=== PATIENT | female | born 1945 | race Caucasian/White ===

== ENCOUNTER 2017-07-22 08:48 | Day surgery (SDC) | payer MEDICARE ==
[~2017-07-22] VITALS: Ht 149.9 cm; Wt 48.1 kg
[~2017-07-22 08:48] MED LIST: ALBUHFA IH; ASCO10007 PO; ATEN50TA PO; CALC-724 PO; CYAN25002 PO; FOLI0.8C PO; GLUC100019 PO; LEVO75TA10 PO; LISI10TA7 PO; LOVA40TA2 PO; OMEG1CAP2 PO; SODIUM CHLORIDE 0.9% 1000ML 1,000 ML IV ONE; SYMB8060 IH; VITA400C70 PO
[2017-07-22 09:41] VITALS: BP 141/66
[2017-07-22] MEDS ORDERED: PROPOFOL 10 MG/ML 20ML VIAL IV ONE ×2 (10:21)
[2017-07-22 10:42] VITALS: BP 79/39
== END 2017-07-22 11:10 | disposition home or self-care (01) ==
LOC: DAH 08:48
PROVIDERS: ATTEND Internal Medicine Gastroenterology
DX: D12.2 Benign neoplasm of ascending colon (principal); K63.5 Polyp of colon; K57.30 Diverticulosis of large intestine without perforation or abscess without bleeding; I10 Essential (primary) hypertension; E78.5 Hyperlipidemia, unspecified; E03.9 Hypothyroidism, unspecified; G47.33 Obstructive sleep apnea (adult) (pediatric); J44.9 Chronic obstructive pulmonary disease, unspecified; Z80.3 Family history of malignant neoplasm of breast; Z90.49 Acquired absence of other specified parts of digestive tract; Z90.11 Acquired absence of right breast and nipple; F17.210 Nicotine dependence, cigarettes, uncomplicated; Z98.890 Other specified postprocedural states
CPT/HCPCS: 45380; 45385; 88305; J2704 ×2; J7030

== ENCOUNTER → 2017-11-20 | Outpatient (CLI) | payer MEDICARE ==
[~2017-11-20] MED LIST changes: +AMLO5TAB2 PO; +ASPI-1181 PO; +LEVO50TA11 PO; +LISI-613 PO; +POTASSIUM GLUCONATE PO; -SODIUM CHLORIDE 0.9% 1000ML 1,000 ML IV ONE
== END | disposition home or self-care (01) ==
LOC: SHCH 07:49
PROVIDERS: ATTEND Internal Medicine Cardiovascular Disease
DX: I71.4 Abdominal aortic aneurysm, without rupture (principal)
CPT/HCPCS: 93978

== ENCOUNTER → 2017-12-17 | Outpatient (CLI) | payer MEDICARE | END | disposition home or self-care (01) | LOC: EDSTATUS 13:30 → SHCH 13:50 | PROVIDERS: ATTEND Internal Medicine Cardiovascular Disease | DX: I07.1 Rheumatic tricuspid insufficiency (principal); I10 Essential (primary) hypertension | CPT/HCPCS: 93306 ==

== ENCOUNTER → 2017-12-23 | Outpatient (CLI) | payer MEDICARE ==
[~2017-12-23] MED LIST changes: +REGADENOSON 0.4 MG/5 ML PF SYG IVP SCH
== END | disposition home or self-care (01) ==
LOC: EDSTATUS 09:10 → SHCH 10:36
PROVIDERS: ATTEND Internal Medicine Cardiovascular Disease
DX: I25.10 Atherosclerotic heart disease of native coronary artery without angina pectoris (principal); I10 Essential (primary) hypertension
CPT/HCPCS: 78452; 93017; 96374; A9500 ×2; J2785

== ENCOUNTER 2018-01-02 10:00 | Inpatient (IN) | payer MEDICARE ==
[~2018-01-02] VITALS: Ht 152.4 cm; Wt 46.3 kg
[~2018-01-02 10:00] MED LIST changes: -AMLO5TAB2 PO; -ASCO10007 PO; -ASPI-1181 PO; -CALC-724 PO; -CYAN25002 PO; -FOLI0.8C PO; -GLUC100019 PO; -LEVO50TA11 PO; -LISI-613 PO; -POTASSIUM GLUCONATE PO; -REGADENOSON 0.4 MG/5 ML PF SYG IVP SCH; -VITA400C70 PO
[2018-01-02 11:18] VITALS: BP 117/64
[2018-01-02] MEDS ORDERED: ASPI-1181 PO (11:40)
[2018-01-02] MEDS ORDERED: AMLO5TAB2 PO (11:40)
[2018-01-02] MEDS ORDERED: LEVO50TA11 PO (11:40)
[2018-01-02] MEDS ORDERED: POTASSIUM GLUCONATE PO (11:40)
[2018-01-02] MEDS ORDERED: LISI-613 PO (11:40)
[2018-01-02 11:47] LABS: BASOPHILS % (AUTO) 1.2 % (0.0-5.0); HEMATOCRIT 41.5 % (36-48); MEAN CORPUSCULAR HEMOGLOBIN 33.5 pg (27.0-33.0); MEAN CORPUSCULAR HGB CONC 34.2 g/dL (32.0-36.0); MONOCYTES % (AUTO) 6.3 % (3.0-13.0); NEUTROPHILS % (AUTO) 64.5 % (40.0-77.0); NUCLEATED RED BLOOD CELLS 0.1 % (0.0-0.19); PLATELET COUNT (AUTO) 231 K/uL (130-400); RED BLOOD CELL COUNT(AUTO) 4.23 MIL/uL (4.00-5.50); RED CELL DISTRIBUTION WIDTH 13.8 % (11.0-15.5); WHITE BLOOD COUNT (AUTO) 8.5 K/uL (4.8-10.8)
[2018-01-02 11:49] LABS: APPEARANCE,URINE Clear (CLEAR); BILIRUBIN,URINE Negative (NEGATIVE); COLOR,URINE Yellow (YELLOW); GLUCOSE, URINE (UA) Negative (NEGATIVE); KETONES,URINE Negative (NEGATIVE); LEUKOCYTE ESTERASE ,URINE Negative (NEGATIVE); NITRATE,URINE Negative (NEGATIVE); OCCULT BLOOD,URINE Negative (NEGATIVE); PH,URINE 7.5 (5.0-8.0); PROTEIN,URINE Negative (NEGATIVE); UROBILINOGEN,URINE 0.2 mg/dL (0.2-1.0)
[2018-01-02 11:52] LABS: CREATININE 0.9 mg/dL (0.5-1.5); POTASSIUM 3.6 mmol/L (3.5-5.1)
[2018-01-02 12:03] LABS: INR 0.95 (0.85-1.15); PARTIAL THROMBOPLASTIN TIME 25.7 SEC (26.3-35.5)
[2018-01-02] MEDS: CEFAZOLIN SODIUM 1 GM VIAL IVP SCH (13:15)
[2018-01-03] MEDS: CEFAZOLIN SODIUM 1 GM VIAL IVP SCH (13:15)
[2018-01-04] MEDS: CEFAZOLIN SODIUM 1 GM VIAL IVP SCH (13:15)
[2018-01-05] MEDS: CEFAZOLIN SODIUM 1 GM VIAL IVP SCH (13:15)
[2018-01-06] VITALS (20 sets, daily range): BP systolic 81–118; BP diastolic 44–82
[2018-01-06] MEDS ORDERED: CEFAZOLIN SODIUM 1 GM VIAL ONE (06:47)
[2018-01-06] MEDS ORDERED: HEPARIN SODIUM 1000UNIT/ML 10ML VIAL ONE (06:47)
[2018-01-06] MEDS ORDERED: ISOVUE-300 100 ML VIAL IV ONE (06:49)
[2018-01-06] MEDS ORDERED: SODIUM CHLORIDE 0.9% 1000ML 1,000 ML IV ONE (07:07)
[2018-01-06] MEDS ORDERED: LIDOCAINE PF 2% 5ML ABBOJECT ONE (07:09)
[2018-01-06] MEDS ORDERED: PROPOFOL 10 MG/ML 20ML VIAL IV ONE (07:09)
[2018-01-06] MEDS ORDERED: MIDAZOLAM HCL 1 MG/ML 2ML VIAL ONE (07:09)
[2018-01-06] MEDS ORDERED: GLYCOPYRROLATE 0.2 MG/ML 5 ML VIAL ONE (07:09)
[2018-01-06] MEDS ORDERED: ONDANSETRON HCL 4 MG/2 ML VIAL ONE (07:09)
[2018-01-06] MEDS ORDERED: DEXAMETHASONE SOD PHOSPHATE 10MG/ML 1ML VIAL ONE (07:09)
[2018-01-06] MEDS ORDERED: NEOSTIGMINE 5MG/5ML SYR IV ONE (07:09)
[2018-01-06] MEDS ORDERED: FENTANYL CITRATE PF 50 MCG/1 ML 2ML VIAL ONE (07:09)
[2018-01-06] MEDS ORDERED: METHYLPREDNISOLONE SOD SUCC 125MG/2ML VIAL ONE (07:45)
[2018-01-06] MEDS ORDERED: DiphenhydrAMINE HCL 50 MG/ML VIAL ONE (07:45)
[2018-01-06] MEDS ORDERED: VANCOMYCIN 1GM+NS 250ML 250 ML IV ONE (09:44)
[2018-01-06] MEDS ORDERED: ACETAMINOPHEN-CODEINE 300/30MG TAB PO PRN (09:45)
[2018-01-06] MEDS ORDERED: MORPHINE SULFATE 4 MG/1ML SYG IV PRN (09:45)
[2018-01-06] MEDS ORDERED: ACETAMINOPHEN 325 MG TAB PO PRN (09:45)
[2018-01-06] MEDS ORDERED: ALBUTEROL SULFATE 0.083% 2.5 MG/3 ML INH IH PRN (10:30)
[2018-01-06] MEDS: ALBUTEROL SULFATE 0.083% 2.5 MG/3 ML INH IH SCH ×3 (12:00→23:19)
[2018-01-06] MEDS: SODIUM CHLORIDE 0.9% 1000ML 1,000 ML IV SCH ×2 (12:47→23:58)
[2018-01-06] MEDS: CEFAZOLIN SODIUM 1 GM VIAL IVP SCH ×3 (13:15→23:44)
[2018-01-06] MEDS ORDERED: CEFAZOLIN 1GM / D5W 50ML 50 ML IV SCH (16:00)
[2018-01-06] MEDS: BUDESONIDE 0.5 MG/2 ML INH IH SCH (17:42)
[2018-01-06] MEDS ORDERED: POTASSIUM GLUCONATE 595 MG PO SCH (21:00)
[2018-01-06] MEDS ORDERED: AMLODIPINE BESYLATE 5 MG TAB PO SCH (21:00)
[2018-01-06] MEDS ORDERED: FISH OIL 1000 MG/CAP PO SCH (21:00)
[2018-01-06] MEDS ORDERED: LISINOPRIL 20 MG TABLET PO SCH (21:00)
[2018-01-06] MEDS ORDERED: ATORVASTATIN CALCIUM 10 MG TABLET PO SCH (21:00)
[2018-01-07] VITALS (15 sets, daily range): BP systolic 85–112; BP diastolic 36–62
[2018-01-07 03:43] LABS: HEMATOCRIT 29.9 % (36-48); MEAN CORPUSCULAR HEMOGLOBIN 33.8 pg (27.0-33.0); MEAN CORPUSCULAR HGB CONC 34.6 g/dL (32.0-36.0); MEAN CORPUSCULAR VOLUME 97.9 fL (79-99); PLATELET COUNT (AUTO) 171 K/uL (130-400); RED BLOOD CELL COUNT(AUTO) 3.06 MIL/uL (4.00-5.50); RED CELL DISTRIBUTION WIDTH 14.1 % (11.0-15.5); WHITE BLOOD COUNT (AUTO) 14.5 K/uL (4.8-10.8)
[2018-01-07 04:02] LABS: CREATININE 0.9 mg/dL (0.5-1.5); POTASSIUM 3.5 mmol/L (3.5-5.1)
[2018-01-07] MEDS: BUDESONIDE 0.5 MG/2 ML INH IH SCH (05:57)
[2018-01-07] MEDS: ALBUTEROL SULFATE 0.083% 2.5 MG/3 ML INH IH SCH ×2 (05:57→11:04)
[2018-01-07] MEDS ORDERED: LEVOTHYROXINE 50 MCG TABLET PO SCH (09:00)
[2018-01-07] MEDS ORDERED: ATENOLOL 50 MG TABLET PO SCH (09:00)
[2018-01-07] MEDS ORDERED: LISINOPRIL 10 MG TABLET PO SCH (09:00)
[2018-01-07] MEDS ORDERED: ASPIRIN 81 MG EC TAB PO SCH (09:00)
[2018-01-07] MEDS: CEFAZOLIN SODIUM 1 GM VIAL IVP SCH (13:15)
[2018-01-08] MEDS ORDERED: LEVOTHYROXINE 75 MCG TABLET PO SCH (09:00)
== END 2018-01-07 14:45 | disposition home or self-care (01) | DRG 269 ==
LOC: EDSTATUS 10:00 → DAHIP 01-06 05:53 → 2CH 01-06 10:37
PROVIDERS: ADMIT Internal Medicine; ATTEND Internal Medicine
PROC: 04V03DZ Restriction of Abdominal Aorta with Intraluminal Device, Percutaneous Approach (ICD-10-PCS; principal; 2018-01-06)
PROC: B4101ZZ Fluoroscopy of Abdominal Aorta using Low Osmolar Contrast (ICD-10-PCS; 2018-01-06)
PROC: 047H3ZZ Dilation of Right External Iliac Artery, Percutaneous Approach (ICD-10-PCS; 2018-01-06)
PROC: 047J3ZZ Dilation of Left External Iliac Artery, Percutaneous Approach (ICD-10-PCS; 2018-01-06)
DX: I71.4 Abdominal aortic aneurysm, without rupture (principal); J96.10 Chronic respiratory failure, unspecified whether with hypoxia or hypercapnia; Z99.81 Dependence on supplemental oxygen; J44.9 Chronic obstructive pulmonary disease, unspecified; E03.9 Hypothyroidism, unspecified; I10 Essential (primary) hypertension; E78.5 Hyperlipidemia, unspecified; G47.33 Obstructive sleep apnea (adult) (pediatric); Z85.3 Personal history of malignant neoplasm of breast; F17.200 Nicotine dependence, unspecified, uncomplicated; G89.29 Other chronic pain; I73.9 Peripheral vascular disease, unspecified; M51.9 Unspecified thoracic, thoracolumbar and lumbosacral intervertebral disc disorder; Z90.11 Acquired absence of right breast and nipple; Z98.891 History of uterine scar from previous surgery; Z92.3 Personal history of irradiation; C50.919 Malignant neoplasm of unspecified site of unspecified female breast; Z90.49 Acquired absence of other specified parts of digestive tract; Z98.49 Cataract extraction status, unspecified eye
CPT/HCPCS: 34705; 34713; 36415; 71045; 80048; 81003; 85025; 85027; 85347; 85610; 85730; 86850; 86900; 86901; 86922; 93005; 94640; 94664; A4218; A4344; C1725; C1760; C1769; C1887; C1894; J0690; J1100; J1200; J1644; J2001; J2250; J2405; J2704; J2710; J2930; J3010; J3370; J3490; J7030; Q9967

== ENCOUNTER → 2018-05-29 | Outpatient (CLI) | payer MEDICARE ==
[~2018-05-29] MED LIST changes: +AMLO5TAB7 PO; +ASPI-1181 PO; +IOHEXOL 350 MG/ML 100ML INFUS..BTL IV ONE; +LEVO50TA11 PO; +LISI-613 PO; +POTASSIUM GLUCONATE PO
== END | disposition home or self-care (01) ==
LOC: OIH 09:01
PROVIDERS: ATTEND Internal Medicine Cardiovascular Disease
DX: N28.1 Cyst of kidney, acquired (principal); K57.90 Diverticulosis of intestine, part unspecified, without perforation or abscess without bleeding; I71.3 Abdominal aortic aneurysm, ruptured; N32.89 Other specified disorders of bladder; I70.90 Unspecified atherosclerosis; M47.895 Other spondylosis, thoracolumbar region
CPT/HCPCS: 74174; Q9967

== ENCOUNTER → 2019-05-25 | Outpatient (CLI) | payer MEDICARE ==
[~2019-05-25] MED LIST changes: -AMLO5TAB7 PO; +AMLO5TAB9 PO; -IOHEXOL 350 MG/ML 100ML INFUS..BTL IV ONE
== END | disposition home or self-care (01) ==
LOC: SHCH 07:58
PROVIDERS: ATTEND Internal Medicine Cardiovascular Disease
DX: I71.4 Abdominal aortic aneurysm, without rupture (principal)
CPT/HCPCS: 93978

== ENCOUNTER 2022-02-16 09:30 | Emergency (ER) | payer MEDICARE ==
[~2022-02-16] VITALS: Ht 147.3 cm; Wt 36.3 kg
[~2022-02-16 09:30] MED LIST changes: +AMLO-257 PO; -AMLO5TAB9 PO; -ASPI-1181 PO; +ASPI-1443 PO; -LISI-613 PO; +LISI10TA24 PO; -LISI10TA7 PO; +LISI20TA24 PO
[2022-02-16 09:54] VITALS: BP 155/61
[2022-02-16] MEDS ORDERED: ACET-66 PO (10:18)
[2022-02-16] MEDS ORDERED: IBUPROFEN 600 MG TABLET PO ONE (10:30)
[2022-02-16] MEDS ORDERED: ACETAMINOPHEN 500 MG TABLET PO ONE (10:30)
== END 2022-02-16 10:28 | disposition home or self-care (01) ==
LOC: EDH 09:30
DX: M25.532 Pain in left wrist (principal); E78.00 Pure hypercholesterolemia, unspecified; I10 Essential (primary) hypertension; Z79.899 Other long term (current) drug therapy; Z79.82 Long term (current) use of aspirin; Z90.49 Acquired absence of other specified parts of digestive tract; Z98.890 Other specified postprocedural states; W18.39XA Other fall on same level, initial encounter; Y93.89 Activity, other specified; Y92.89 Other specified places as the place of occurrence of the external cause; Y99.8 Other external cause status
CPT/HCPCS: 73110

== ENCOUNTER → 2022-04-02 | Outpatient (CLI) | payer MEDICARE ==
[~2022-04-02] MED LIST changes: +ACET-66 PO
== END | disposition home or self-care (01) ==
LOC: SHCH 08:30
PROVIDERS: ATTEND Internal Medicine Cardiovascular Disease
DX: I08.8 Other rheumatic multiple valve diseases (principal); I27.20 Pulmonary hypertension, unspecified; I11.9 Hypertensive heart disease without heart failure; J44.9 Chronic obstructive pulmonary disease, unspecified; E78.5 Hyperlipidemia, unspecified; I71.4 Abdominal aortic aneurysm, without rupture; I70.0 Atherosclerosis of aorta; Z85.3 Personal history of malignant neoplasm of breast; Z85.118 Personal history of other malignant neoplasm of bronchus and lung; Z95.828 Presence of other vascular implants and grafts
CPT/HCPCS: 93306; 93978

== ENCOUNTER 2022-07-16 04:11 | Inpatient (IN) | payer MEDICARE ==
[~2022-07-16] VITALS: Ht 149.9 cm; Wt 37.3 kg
[~2022-07-16 04:11] MED LIST changes: +ALBU1.252 IH; -AMLO-257 PO; +ASCO1500 PO; +GLUC1CAP9 PO; -LISI10TA24 PO; -LISI20TA24 PO; +MAGN400C PO; -POTASSIUM GLUCONATE PO; +PRED20TA3 PO; -SYMB8060 IH; +THEO200C4 PO
[2022-07-16] MEDS ORDERED: CEFTRIAXONE 1G VIAL IVP ONE (04:30)
[2022-07-16] MEDS ORDERED: IPRATROPIUM/ALBUTEROL SULFATE 3 ML SOLUTION IH ONE ×4 (04:30→05:03)
[2022-07-16] MEDS ORDERED: SOLU-MEDROL 125MG VIAL IVP ONE ×2 (04:30→13:30)
[2022-07-16] MEDS ORDERED: CEFTRIAXONE 1G VIAL ONE (04:39)
[2022-07-16] MEDS ORDERED: SOLU-MEDROL 125MG VIAL ONE (04:39)
[2022-07-16 05:09] LABS: BASOPHILS % (AUTO) 0.2 % (0.0-5.0); EOSINOPHILS % (AUTO) 0.1 % (0.0-8.0); HEMATOCRIT 44.8 % (36-48); LYMPHOCYTES % (AUTO) 2.8 % (21.0-51.0); MEAN CORPUSCULAR HEMOGLOBIN 32.4 pg (27.0-33.0); MEAN CORPUSCULAR HGB CONC 31.3 g/dL (32.0-36.0); MEAN CORPUSCULAR VOLUME 103.7 fL (79-99); MONOCYTES % (AUTO) 3.8 % (3.0-13.0); NEUTROPHILS % (AUTO) 92.1 % (40.0-77.0); PLATELET COUNT (AUTO) 202 K/uL (130-400); RED BLOOD CELL COUNT(AUTO) 4.32 MIL/uL (4.00-5.50); RED CELL DISTRIBUTION WIDTH 14.7 % (11.0-15.5)
[2022-07-16 05:17] LABS: CREATININE 0.7 mg/dL (0.5-1.5)
[2022-07-16 05:21] LABS: ALBUMIN 3.5 g/dL (3.5-5.0); TOTAL PROTEIN, SERUM 7.1 g/dL (6.0-8.3)
[2022-07-16] MEDS ORDERED: ACETAMINOPHEN 325 MG TAB PO PRN (06:30)
[2022-07-16] MEDS ORDERED: ONDANSETRON ODT 4MG TAB SL PRN (06:30)
[2022-07-16] MEDS: IPRATROPIUM/ALBUTEROL SULFATE 3 ML SOLUTION IH SCH ×5 (07:01→21:59)
[2022-07-16] MEDS ORDERED: SOLU-MEDROL 40MG VIAL IVP SCH (09:00)
[2022-07-16] MEDS: ALBUTEROL 0.083% 2.5 MG/3 ML INH IH PRN ×2 (13:24→17:26)
[2022-07-16] MEDS ORDERED: ATENOLOL 50 MG TABLET PO ONE (16:00)
[2022-07-16 20:00] VITALS: BP 154/84
[2022-07-16] MEDS: THEOPHYLLINE ANHYDROUS 100 MG CAP.ER.24H PO SCH (21:24)
[2022-07-16] MEDS: SOLU-MEDROL 40MG VIAL IVP SCH (21:24)
[2022-07-17] VITALS (7 sets, daily range): BP systolic 122–160; BP diastolic 63–99
[2022-07-17] MEDS ORDERED: LORAZEPAM 0.5 MG TABLET PO PRN (01:00)
[2022-07-17] MEDS: IPRATROPIUM/ALBUTEROL SULFATE 3 ML SOLUTION IH SCH ×6 (02:11→21:11)
[2022-07-17 04:04] LABS: HEMATOCRIT 36.3 % (36-48); MEAN CORPUSCULAR HEMOGLOBIN 32.3 pg (27.0-33.0); MEAN CORPUSCULAR HGB CONC 30.9 g/dL (32.0-36.0); MEAN CORPUSCULAR VOLUME 104.6 fL (79-99); PLATELET COUNT (AUTO) 185 K/uL (130-400); RED BLOOD CELL COUNT(AUTO) 3.47 MIL/uL (4.00-5.50); RED CELL DISTRIBUTION WIDTH 14.7 % (11.0-15.5); WHITE BLOOD COUNT (AUTO) 9.8 K/uL (4.8-10.8)
[2022-07-17 04:12] LABS: CREATININE 0.7 mg/dL (0.5-1.5); MAGNESIUM 2.2 mg/dL (1.80-2.40); PHOSPHORUS 3.4 mg/dL (2.5-4.9); POTASSIUM 4.2 mmol/L (3.5-5.1)
[2022-07-17] MEDS: BUDESONIDE 0.5 MG/2 ML INH IH SCH ×2 (06:24→18:27)
[2022-07-17] MEDS ORDERED: THEOPHYLLINE ANHYDROUS 200 MG PO SCH (09:00)
[2022-07-17] MEDS: ATENOLOL 50 MG TABLET PO SCH (09:04)
[2022-07-17] MEDS: ASPIRIN 81 MG EC TAB PO SCH (09:04)
[2022-07-17] MEDS: MAGNESIUM OXIDE 400 MG TABLET PO SCH (09:05)
[2022-07-17] MEDS: ASCORBIC ACID 500 MG TAB PO SCH (09:06)
[2022-07-17] MEDS: LEVOTHYROXINE 75 MCG TABLET PO SCH (09:10)
[2022-07-17] MEDS: SOLU-MEDROL 40MG VIAL IVP SCH ×2 (09:31→21:47)
[2022-07-17] MEDS: ALBUTEROL 0.083% 2.5 MG/3 ML INH IH PRN ×3 (09:56→16:59)
[2022-07-17 11:56] LABS: ABG BASE EXCESS 5.8 mmol/L (-2.0-3.0); ABG HCO3 34.7 mmol/L (21.0-28.0); ABG OXYGEN SATURATION 93.6 % (95.0-99.0); ABG PCO2 71 mmHg (32-45)
[2022-07-17] MEDS ORDERED: FUROSEMIDE 40MG VIAL IV ONE (19:00)
[2022-07-17] MEDS: THEOPHYLLINE ANHYDROUS 100 MG CAP.ER.24H PO SCH (21:48)
[2022-07-18] MEDS: IPRATROPIUM/ALBUTEROL SULFATE 3 ML SOLUTION IH SCH ×6 (01:56→22:26)
[2022-07-18 04:00] VITALS: BP 127/67
[2022-07-18] MEDS: LEVOTHYROXINE 75 MCG TABLET PO SCH (06:20)
[2022-07-18] MEDS: BUDESONIDE 0.5 MG/2 ML INH IH SCH ×2 (06:25→18:23)
[2022-07-18 08:00] VITALS: BP 160/87
[2022-07-18] MEDS: SOLU-MEDROL 40MG VIAL IVP SCH ×3 (08:41→18:30)
[2022-07-18] MEDS: MAGNESIUM OXIDE 400 MG TABLET PO SCH (08:41)
[2022-07-18] MEDS: ASPIRIN 81 MG EC TAB PO SCH (08:41)
[2022-07-18] MEDS: ASCORBIC ACID 500 MG TAB PO SCH (08:51)
[2022-07-18] MEDS: ATENOLOL 50 MG TABLET PO SCH (09:16)
[2022-07-18 11:27] LABS: HEMATOCRIT 39.3 % (36-48); MEAN CORPUSCULAR HEMOGLOBIN 32.1 pg (27.0-33.0); MEAN CORPUSCULAR HGB CONC 31.8 g/dL (32.0-36.0); RED BLOOD CELL COUNT(AUTO) 3.89 MIL/uL (4.00-5.50); RED CELL DISTRIBUTION WIDTH 14.5 % (11.0-15.5); WHITE BLOOD COUNT (AUTO) 16.1 K/uL (4.8-10.8)
[2022-07-18 11:37] LABS: CREATININE 0.9 mg/dL (0.5-1.5); POTASSIUM 4.2 mmol/L (3.5-5.1)
[2022-07-18 12:00] VITALS: BP 96/43
[2022-07-18 16:00] VITALS: BP 161/81
[2022-07-18 20:00] VITALS: BP 127/58
[2022-07-18] MEDS: THEOPHYLLINE ANHYDROUS 100 MG CAP.ER.24H PO SCH (20:51)
[2022-07-18] MEDS ORDERED: ENOXAPARIN SODIUM 30 MG/0.3 ML SQ ONE ×2 (23:00→23:05)
[2022-07-19] VITALS: BP 144/71
[2022-07-19] MEDS: SOLU-MEDROL 40MG VIAL IVP SCH ×2 (01:20→09:01)
[2022-07-19] MEDS: IPRATROPIUM/ALBUTEROL SULFATE 3 ML SOLUTION IH SCH ×3 (02:23→10:24)
[2022-07-19 04:00] VITALS: BP 145/63
[2022-07-19 04:41] LABS: HEMATOCRIT 39.8 % (36-48); LYMPHOCYTES % (AUTO) 2.6 % (21.0-51.0); MEAN CORPUSCULAR HGB CONC 31.2 g/dL (32.0-36.0); MEAN CORPUSCULAR VOLUME 102.6 fL (79-99); MONOCYTES % (AUTO) 2.4 % (3.0-13.0); NEUTROPHILS % (AUTO) 94.4 % (40.0-77.0); PLATELET COUNT (AUTO) 169 K/uL (130-400); RED BLOOD CELL COUNT(AUTO) 3.88 MIL/uL (4.00-5.50); RED CELL DISTRIBUTION WIDTH 14.1 % (11.0-15.5); WHITE BLOOD COUNT (AUTO) 9.6 K/uL (4.8-10.8)
[2022-07-19 04:59] LABS: ALBUMIN 2.8 g/dL (3.5-5.0); CREATININE 0.7 mg/dL (0.5-1.5); TOTAL PROTEIN, SERUM 5.9 g/dL (6.0-8.3)
[2022-07-19 05:05] LABS: B-TYPE NATRIURETIC PEPTIDE 108 pg/mL (0-100)
[2022-07-19] MEDS: LEVOTHYROXINE 75 MCG TABLET PO SCH (06:26)
[2022-07-19] MEDS: BUDESONIDE 0.5 MG/2 ML INH IH SCH (06:30)
[2022-07-19 08:00] VITALS: BP 148/87
[2022-07-19] MEDS ORDERED: ENOXAPARIN SODIUM 30 MG/0.3 ML SQ SCH (09:00)
[2022-07-19] MEDS: ASCORBIC ACID 500 MG TAB PO SCH (09:00)
[2022-07-19] MEDS ORDERED: FAMOTIDINE 20MG TAB PO SCH (09:00)
[2022-07-19] MEDS: MAGNESIUM OXIDE 400 MG TABLET PO SCH (09:01)
[2022-07-19] MEDS: ATENOLOL 50 MG TABLET PO SCH (09:03)
[2022-07-19] MEDS: ASPIRIN 81 MG EC TAB PO SCH (09:03)
[2022-07-19] MEDS ORDERED: BENZONATATE 100 MG CAPSULE PO ONE (10:10)
[2022-07-19] MEDS ORDERED: GUAIFENESIN-CODEINE 5 ML SYRUP PO PRN (10:30)
[2022-07-19 12:00] VITALS: BP 115/66
== END 2022-07-19 14:15 | DRG 189 ==
LOC: EDH 04:11 → EDHIP 06:17 → 4BH 17:10
PROVIDERS: ADMIT Internal Medicine Infectious Disease; ATTEND Internal Medicine Infectious Disease
PROC: 5A09357 Assistance with Respiratory Ventilation, Less than 24 Consecutive Hours, Continuous Positive Airway Pressure (ICD-10-PCS; principal; 2022-07-17)
PROC: 5A09357 Assistance with Respiratory Ventilation, Less than 24 Consecutive Hours, Continuous Positive Airway Pressure (ICD-10-PCS; 2022-07-18)
PROC: 5A09357 Assistance with Respiratory Ventilation, Less than 24 Consecutive Hours, Continuous Positive Airway Pressure (ICD-10-PCS; 2022-07-19)
DX: J96.21 Acute and chronic respiratory failure with hypoxia (principal); J44.1 Chronic obstructive pulmonary disease with (acute) exacerbation; E46 Unspecified protein-calorie malnutrition; R64 Cachexia; Z68.1 Body mass index [BMI] 19.9 or less, adult; J96.22 Acute and chronic respiratory failure with hypercapnia; I10 Essential (primary) hypertension; E03.9 Hypothyroidism, unspecified; R53.81 Other malaise; D72.829 Elevated white blood cell count, unspecified; E78.00 Pure hypercholesterolemia, unspecified; Z85.3 Personal history of malignant neoplasm of breast; Z85.118 Personal history of other malignant neoplasm of bronchus and lung; Z90.11 Acquired absence of right breast and nipple
CPT/HCPCS: 36415; 36600; 71045; 80048; 80053; 82803; 83735; 83880; 84100; 84145; 84484; 85025; 85027; 93005; 94640; 94664; 97039; G0378; J0696; J1650; J1940; J2920; J2930